=== PATIENT | male | born 1990 | race Caucasian/White ===

== ENCOUNTER 2016-09-10 16:44 | Emergency (ER) | payer OTHER ==
[~2016-09-10] VITALS: Ht 182.9 cm; Wt 81.7 kg
[2016-09-10] MEDS ORDERED: NORCO 5/3251 TABLET PO (17:17)
[2016-09-10] MEDS ORDERED: KEFLEX500 MG PO (17:17)
[2016-09-10 17:35] LABS: HEMATOCRIT 43.9 % (38.0-50.0); MCH 30.4 PG (29.0-34.0); MCHC 35.1 G/DL (30.0-36.0); MCV 86.6 FL (86-99); MEAN PLAT.VOLUME 9.2 uM^3 (9.0-12.4); PLATELET COUNT 238 K/uL (156-360); RBC DIS.WIDTH-CV 12.5 % (11.8-14.6); RBC DIS.WIDTH-SD 39.2 % (39-53); RED BLOOD COUNT 5.07 M/uL (4.00-5.50); WHITE BLOOD COUNT 9.3 K/uL (4.1-10.2)
[2016-09-10 17:43] LABS: CHLORIDE 107 mEq/L (99-109); POTASSIUM 4.1 mEq/L (3.7-5.4); SODIUM 141 mEq/L (136-147)
[2016-09-10 17:45] LABS: GLUCOSE 90 mg/dL (70-99)
[2016-09-10 17:46] LABS: ANION GAP 9 MEQ/L (2-14)
[2016-09-10 17:49] LABS: GFR ESTIMATE (CALCULATED) > 59 mL/min/
[2016-09-10 17:50] LABS: UREA NITROGEN (BUN) 11 mg/dL (9-23)
[2016-09-10 17:58] VITALS: BP 121/79
== END 2016-09-10 17:59 | disposition home or self-care (01) ==
LOC: EME 16:44
PROVIDERS: Nurse Practitioner Family
DX: L02.31 Cutaneous abscess of buttock (principal); J45.909 Unspecified asthma, uncomplicated; Z72.0 Tobacco use
CPT/HCPCS: 80048; 85027; 99281; 99283